=== PATIENT | male | born 1985 | race Caucasian/White ===

== ENCOUNTER 2019-01-21 14:53 | Emergency (ER) | payer SELFPAY ==
[2019-01-21] MEDS ORDERED: LIDOCAINE 1% (MDV) 10 ML INJ INJ (16:03)
[2019-01-21] MEDS: DIPHTH/TET/ACEL PERTUSS (ADULT) 0.5 ML VIAL IM* (16:16)
[2019-01-21] MEDS: HYDROCODONE/APAP (5/325) TAB PO (16:22)
[2019-01-21] MEDS: LIDOCAINE 1% (MDV) 20 ML INJ SC (16:26)
== END 2019-01-21 17:19 | disposition home or self-care (01) ==
LOC: FTE 14:53
DX: S61.011A Laceration without foreign body of right thumb without damage to nail, initial encounter (principal); W27.0XXA Contact with workbench tool, initial encounter; Y92.9 Unspecified place or not applicable; Z23 Encounter for immunization
CPT/HCPCS: 12001; 73140; 90471; 90715; 99283-25